=== PATIENT | female | born 1975 | race Caucasian/White ===

== ENCOUNTER 2018-02-03 08:11 | Inpatient (IN) | payer OTHER ==
[~2018-02-03] VITALS: Ht 162.6 cm; Wt 72.1 kg
[2018-02-03] MEDS ORDERED: DIAZEPAM 5 MG TABLET PO PRN (20:45)
[2018-02-03] MEDS ORDERED: LOPERAMIDE HCL 2 MG CAPSULE PO PRN ×2 (20:45)
[2018-02-03] MEDS ORDERED: DICYCLOMINE HCL 20 MG TABLET PO PRN (20:45)
[2018-02-03] MEDS ORDERED: LORAZEPAM 2 MG/1 ML VIAL IM PRN (20:45)
[2018-02-03] MEDS ORDERED: MAGNESIUM HYDROXIDE 30 ML LIQUID UDC PO PRN (20:45)
[2018-02-03] MEDS ORDERED: CLONIDINE HCL 0.1 MG TABLET PO PRN (20:45)
[2018-02-03] MEDS ORDERED: MAG HYDROX/AL HYDROX/SIMETH 30 ML LIQUID UDC PO PRN (20:45)
[2018-02-03] MEDS ORDERED: ONDANSETRON 4 MG/2 ML VIAL IM PRN (20:45)
[2018-02-03] MEDS ORDERED: BACLOFEN 20 MG TABLET PO PRN (20:45)
[2018-02-03] MEDS ORDERED: DIAZEPAM 10 MG TABLET PO PRN ×2 (20:45)
[2018-02-03 20:53] VITALS: BP 151/101
[2018-02-03 21:09] LABS: BASOPHILS % (AUTO) 0.5 % (0.0-2.0); EOSINOPHILS # (AUTO) 0.1 K/uL (0.0-0.7); EOSINOPHILS % (AUTO) 1.5 % (0.0-7.0); HEMATOCRIT 39.6 % (36.7-47.1); HEMOGLOBIN 13.3 g/dL (12.5-16.3); LYMPHOCYTES # (AUTO) 1.8 K/uL (20.0-40.0); LYMPHOCYTES % (AUTO) 37.8 % (20.5-51.5); MEAN CORPUSCULAR HEMOGLOBIN 27.9 uug (23.8-33.4); MEAN CORPUSCULAR HGB CONC 34 g/dL (32.5-36.3); MEAN CORPUSCULAR VOLUME 82.9 fL (73.0-96.2); MONOCYTES # (AUTO) 0.3 K/uL (2.0-10.0); MONOCYTES % (AUTO) 5.2 % (0.0-11.0); NEUTROPHILS # (AUTO) 2.7 K/uL (1.8-8.9); PLATELET COUNT (AUTO) 233 K/uL (152-348); RED BLOOD CELL COUNT(AUTO) 4.78 MIL/uL (4.06-5.63); WHITE BLOOD COUNT (AUTO) 4.9 K/uL (3.6-10.2)
[2018-02-03 21:15] LABS: ETHANOL < 3 MG/DL (0-0)
[2018-02-03 21:20] LABS: ALANINE AMINOTRANSFERASE 19 U/L (16-63); ALKALINE PHOSPHATASE 62 U/L (50-136); ASPARTATE AMINOTRANSFERASE 16 U/L (15-37); BILIRUBIN,TOTAL 0.2 mg/dL (0.2-1.0); CARBON DIOXIDE 29 mmol/L (21-32); CHLORIDE 102 mmol/L (98-107); CREATININE 0.9 mg/dL (0.6-1.3); GLUCOSE 95 mg/dL (74-106); MAGNESIUM 1.4 mg/dL (1.8-2.4); POTASSIUM 3.6 mmol/L (3.5-5.1); UREA NITROGEN, BLOOD 11 mg/dL (7-18)
[2018-02-03 21:29] LABS: IRON, SERUM 35 ug/dL (50-175)
[2018-02-03 21:43] LABS: THYROID STIMULATING HORMONE 1.378 mIU/mL (0.358-3.740)
[2018-02-03 22:00] VITALS: BP 151/101
[2018-02-03] MEDS ORDERED: PHENOBARBITAL 60 MG TABLET PO SCH (22:00)
[2018-02-03 22:55] LABS: *URINE HCG, QUAL NEGATIVE (NEGATIVE)
[2018-02-03 23:00] VITALS: BP 133/85
[2018-02-03] MEDS ORDERED: MAGNESIUM OXIDE 400 MG TABLET PO ONE (23:00)
[2018-02-03] MEDS ORDERED: BUPR100T6 PO (23:01)
[2018-02-03] MEDS ORDERED: ERGO400T7 PO (23:01)
[2018-02-03] MEDS ORDERED: METF500T6 PO (23:01)
[2018-02-03] MEDS ORDERED: LOSA50TA21 PO (23:01)
[2018-02-03] MEDS ORDERED: ALBU18HF2 IH (23:01)
[2018-02-03] MEDS ORDERED: CHOL10002 PO (23:01)
[2018-02-03] MEDS ORDERED: LOVA20TA2 PO (23:01)
[2018-02-03] MEDS ORDERED: ACET-73 PO (23:01)
[2018-02-03] MEDS ORDERED: FERR325T28 PO (23:01)
[2018-02-03 23:05] LABS: *AMPHETAMINE, URINE POSITIVE (NEGATIVE); *BARBITURATE, URINE NEGATIVE (NEGATIVE); *CANNABINOID, URINE NEGATIVE (NEGATIVE); *COCCAINE, URINE NEGATIVE (NEGATIVE); *OPIATE, URINE NEGATIVE (NEGATIVE); *PHENCYCLIDINE SCREEN,URINE NEGATIVE (NEGATIVE)
[2018-02-04] VITALS: BP 132/81
[2018-02-04 04:00] VITALS: BP 136/74
[2018-02-04 08:11] VITALS: BP 125/80
[2018-02-04] MEDS: PHENOBARBITAL 60 MG TABLET PO SCH ×4 (08:46→20:50)
[2018-02-04] MEDS ORDERED: TUBERCULIN,PURIF.PROT.DERIV. 5 TU/0.1 ML TEST ID ONE (09:00)
[2018-02-04] MEDS ORDERED: PATIENT MAY USE OWN MED- MD OK PO SCH (12:00)
[2018-02-04 12:26] VITALS: BP 132/79
[2018-02-04] MEDS: PATIENT MAY USE OWN MED- MD OK PO SCH ×4 (13:17→20:50)
[2018-02-04 16:48] VITALS: BP 129/76
[2018-02-04 20:00] VITALS: BP 118/76
[2018-02-04] MEDS: FERROUS SULFATE 325 MG PO SCH (20:49)
[2018-02-04] MEDS: GABAPENTIN 300 MG CAPSULE PO SCH (20:50)
[2018-02-05] VITALS: BP 122/71
[2018-02-05 04:00] VITALS: BP 117/70
[2018-02-05 08:07] VITALS: BP 120/73
[2018-02-05] MEDS: PATIENT MAY USE OWN MED- MD OK PO SCH ×5 (08:21→20:19)
[2018-02-05] MEDS: ASCORBIC ACID 250 MG TABLET PO SCH (08:22)
[2018-02-05] MEDS: GABAPENTIN 300 MG CAPSULE PO SCH ×3 (08:22→20:19)
[2018-02-05] MEDS: buPROPion SR 100 MG TABLET.SA PO SCH (08:22)
[2018-02-05] MEDS: FERROUS SULFATE 325 MG PO SCH ×2 (08:22→20:19)
[2018-02-05] MEDS: PHENOBARBITAL 60 MG TABLET PO SCH ×3 (08:22→20:20)
[2018-02-05 10:07] LABS: HEPATITIS B SURFACE AG Negative (Negative)
[2018-02-05] MEDS ORDERED: hydrALAZINE HCL 50 MG TABLET PO PRN (11:30)
[2018-02-05 13:46] VITALS: BP 116/74
[2018-02-05 17:50] VITALS: BP 143/81
[2018-02-05 20:00] VITALS: BP 110/70
[2018-02-05] MEDS: CLONIDINE HCL 0.1 MG TABLET PO SCH (20:19)
[2018-02-05] MEDS: ACETAMINOPHEN 325 MG TABLET PO PRN (20:20)
[2018-02-05] MEDS: diphenhydrAMINE 50 MG CAPSULE PO PRN (20:23)
[2018-02-06] VITALS: BP 93/52
[2018-02-06 08:00] VITALS: BP 112/70
[2018-02-06] MEDS: buPROPion SR 100 MG TABLET.SA PO SCH (08:30)
[2018-02-06] MEDS: GABAPENTIN 300 MG CAPSULE PO SCH ×2 (08:30→14:22)
[2018-02-06] MEDS: PATIENT MAY USE OWN MED- MD OK PO SCH ×5 (08:30→20:23)
[2018-02-06] MEDS: FERROUS SULFATE 325 MG PO SCH ×2 (08:31→20:23)
[2018-02-06] MEDS: ASCORBIC ACID 250 MG TABLET PO SCH (08:31)
[2018-02-06] MEDS: CLONIDINE HCL 0.1 MG TABLET PO SCH ×2 (08:31→20:32)
[2018-02-06] MEDS: MIRALAX 17 GM POWD.PACK PO PRN (08:37)
[2018-02-06] MEDS ORDERED: PHENOBARBITAL 60 MG TABLET PO SCH ×2 (09:00→21:00)
[2018-02-06 12:00] VITALS: BP 103/62
[2018-02-06] MEDS ORDERED: DIAZEPAM 10 MG TABLET PO PRN (12:00)
[2018-02-06] MEDS ORDERED: DIAZEPAM 5 MG TABLET PO PRN (12:00)
[2018-02-06] MEDS: PHENOBARBITAL 60 MG TABLET PO SCH ×2 (12:11→16:41)
[2018-02-06] MEDS: DIAZEPAM 10 MG TABLET PO PRN ×2 (12:16→16:46)
[2018-02-06 16:00] VITALS: BP 109/68
[2018-02-06] MEDS: ACETAMINOPHEN 325 MG TABLET PO PRN (16:46)
[2018-02-06 20:00] VITALS: BP 90/50
[2018-02-06] MEDS: IBUPROFEN 600 MG TABLET PO PRN (20:23)
[2018-02-06] MEDS: ONDANSETRON ODT 4 MG TAB.RAPDIS SL PRN (20:24)
[2018-02-06] MEDS: diphenhydrAMINE 50 MG CAPSULE PO PRN (20:33)
[2018-02-06] MEDS ORDERED: GABAPENTIN 300 MG CAPSULE PO SCH (21:00)
[2018-02-07 08:00] VITALS: BP 95/62
[2018-02-07] MEDS: PATIENT MAY USE OWN MED- MD OK PO SCH ×5 (08:23→20:48)
[2018-02-07] MEDS: buPROPion SR 100 MG TABLET.SA PO SCH (08:23)
[2018-02-07] MEDS: ASCORBIC ACID 250 MG TABLET PO SCH (08:23)
[2018-02-07] MEDS: GABAPENTIN 300 MG CAPSULE PO SCH ×3 (08:23→21:34)
[2018-02-07] MEDS: CLONIDINE HCL 0.1 MG TABLET PO SCH ×3 (08:24→21:34)
[2018-02-07] MEDS: FERROUS SULFATE 325 MG PO SCH ×2 (08:24→20:48)
[2018-02-07] MEDS: DIAZEPAM 10 MG TABLET PO PRN (08:30)
[2018-02-07] MEDS ORDERED: PHENOBARBITAL 60 MG TABLET PO SCH ×3 (09:00→21:00)
[2018-02-07 12:00] VITALS: BP 139/82
[2018-02-07] MEDS ORDERED: DIAZEPAM 10 MG TABLET PO PRN ×2 (12:45)
[2018-02-07] MEDS ORDERED: DIAZEPAM 5 MG TABLET PO PRN (12:45)
[2018-02-07 16:00] VITALS: BP_SYST 115; BP_SYST 95; BP_DIAS 62; BP_DIAS 73
[2018-02-07 20:00] VITALS: BP_SYST 114; BP_DIAS 65; BP_DIAS 71
[2018-02-07] MEDS: IBUPROFEN 600 MG TABLET PO PRN (20:46)
[2018-02-07] MEDS: ONDANSETRON ODT 4 MG TAB.RAPDIS SL PRN (20:46)
[2018-02-07] MEDS: diphenhydrAMINE 50 MG CAPSULE PO PRN (20:46)
[2018-02-08] VITALS: BP 109/63
[2018-02-08 08:00] VITALS: BP 122/74
[2018-02-08] MEDS: ASCORBIC ACID 250 MG TABLET PO SCH (08:34)
[2018-02-08] MEDS: buPROPion SR 100 MG TABLET.SA PO SCH (08:34)
[2018-02-08] MEDS: FERROUS SULFATE 325 MG PO SCH ×2 (08:34→21:27)
[2018-02-08] MEDS: GABAPENTIN 300 MG CAPSULE PO SCH ×3 (08:34→20:45)
[2018-02-08] MEDS: PATIENT MAY USE OWN MED- MD OK PO SCH ×5 (08:35→21:27)
[2018-02-08] MEDS: CLONIDINE HCL 0.1 MG TABLET PO SCH ×3 (08:36→21:00)
[2018-02-08] MEDS ORDERED: PHENOBARBITAL 60 MG TABLET PO SCH (09:00)
[2018-02-08] MEDS ORDERED: BENZOCAINE/MENTH/CETYLPYRD LOZENGE MM PRN (11:30)
[2018-02-08 12:00] VITALS: BP 136/88
[2018-02-08] MEDS: PHENOBARBITAL 60 MG TABLET PO SCH ×2 (14:07→20:45)
[2018-02-08] MEDS ORDERED: ASCO250T5 PO (14:21)
[2018-02-08] MEDS ORDERED: HYDR-3895 PO (14:21)
[2018-02-08] MEDS ORDERED: GABA-534 PO ×2 (14:21)
[2018-02-08] MEDS ORDERED: IBUP-1955 PO (14:21)
[2018-02-08] MEDS ORDERED: FERR325T28 PO (14:21)
[2018-02-08] MEDS ORDERED: BACL20TA PO (14:21)
[2018-02-08] MEDS ORDERED: CLON0.1T14 PO (14:21)
[2018-02-08 16:00] VITALS: BP 111/60
[2018-02-08 20:00] VITALS: BP 104/54
[2018-02-08] MEDS: MIRALAX 17 GM POWD.PACK PO PRN (20:46)
[2018-02-08] MEDS: HYDROXYZINE PAMOATE 25 MG CAPSULE PO PRN (20:46)
[2018-02-08] MEDS: ONDANSETRON ODT 4 MG TAB.RAPDIS SL PRN (20:46)
[2018-02-08] MEDS: TRAZODONE 50 MG TABLET PO SCH (20:46)
[2018-02-08] MEDS: IBUPROFEN 600 MG TABLET PO PRN (20:46)
[2018-02-09 08:00] VITALS: BP 124/84
[2018-02-09] MEDS ORDERED: PHENOBARBITAL 60 MG TABLET PO SCH (09:00)
[2018-02-09] MEDS: GABAPENTIN 300 MG CAPSULE PO SCH ×3 (09:37→20:07)
[2018-02-09] MEDS: CLONIDINE HCL 0.1 MG TABLET PO SCH ×3 (09:38→20:08)
[2018-02-09] MEDS: buPROPion SR 100 MG TABLET.SA PO SCH (09:38)
[2018-02-09] MEDS: ASCORBIC ACID 250 MG TABLET PO SCH (09:38)
[2018-02-09] MEDS: PATIENT MAY USE OWN MED- MD OK PO SCH ×5 (09:38→20:08)
[2018-02-09] MEDS: FERROUS SULFATE 325 MG PO SCH ×2 (09:39→20:09)
[2018-02-09 13:00] VITALS: BP 141/80
[2018-02-09 16:00] VITALS: BP 131/82
[2018-02-09 20:00] VITALS: BP 98/66
[2018-02-09] MEDS: ACETAMINOPHEN 325 MG TABLET PO PRN (20:07)
[2018-02-09] MEDS: TRAZODONE 50 MG TABLET PO SCH (20:07)
[2018-02-10] VITALS: BP 102/63
[2018-02-10 04:00] VITALS: BP 112/74
[2018-02-10] MEDS: HYDROXYZINE PAMOATE 25 MG CAPSULE PO PRN (07:51)
[2018-02-10] MEDS: ASCORBIC ACID 250 MG TABLET PO SCH (08:37)
[2018-02-10] MEDS: GABAPENTIN 300 MG CAPSULE PO SCH (08:37)
[2018-02-10] MEDS: CLONIDINE HCL 0.1 MG TABLET PO SCH (08:38)
[2018-02-10] MEDS: PATIENT MAY USE OWN MED- MD OK PO SCH ×3 (08:38→08:39)
[2018-02-10] MEDS: buPROPion SR 100 MG TABLET.SA PO SCH (08:38)
[2018-02-10] MEDS: FERROUS SULFATE 325 MG PO SCH (08:40)
[2018-02-10 08:43] VITALS: BP 121/87
== END 2018-02-10 09:25 | DRG 895 ==
LOC: SRC 19:45 → EDSEX 19:45
PROVIDERS: ADMIT Internal Medicine; ATTEND Internal Medicine
PROC: HZ2ZZZZ Detoxification Services for Substance Abuse Treatment (ICD-10-PCS; principal; 2018-02-03)
PROC: HZ31ZZZ Individual Counseling for Substance Abuse Treatment, Behavioral (ICD-10-PCS; 2018-02-04)
PROC: HZ41ZZZ Group Counseling for Substance Abuse Treatment, Behavioral (ICD-10-PCS; 2018-02-07)
DX: F13.232 Sedative, hypnotic or anxiolytic dependence with withdrawal with perceptual disturbance (principal); I15.8 Other secondary hypertension; E83.42 Hypomagnesemia; E11.9 Type 2 diabetes mellitus without complications; D50.9 Iron deficiency anemia, unspecified; E55.9 Vitamin D deficiency, unspecified; E78.5 Hyperlipidemia, unspecified; F32.9 Major depressive disorder, single episode, unspecified; J45.20 Mild intermittent asthma, uncomplicated; Z80.9 Family history of malignant neoplasm, unspecified; Z81.1 Family history of alcohol abuse and dependence; Z81.3 Family history of other psychoactive substance abuse and dependence; F15.23 Other stimulant dependence with withdrawal; Z85.3 Personal history of malignant neoplasm of breast; Z92.21 Personal history of antineoplastic chemotherapy; F11.10 Opioid abuse, uncomplicated; Z85.828 Personal history of other malignant neoplasm of skin; J02.9 Acute pharyngitis, unspecified; F41.9 Anxiety disorder, unspecified
CPT/HCPCS: 36415; 70030-TC; 80307; 80324; 80346; 83550; 83735; 84443; 84703; 85025; 86580; 86592; 86705; 86803; 87340; 87400; 87806; G0480; J8499; Q0162; Q0163